=== PATIENT | female | born 1995 | race Two or more races ===

== ENCOUNTER → 2024-01-21 12:18 | Emergency (ER) | payer SELFPAY | END | disposition left against medical advice (07) | LOC: EMS 12:18 | DX: Z53.21 Procedure and treatment not carried out due to patient leaving prior to being seen by health care provider (principal) ==

== ENCOUNTER 2024-01-21 12:36 | Emergency (ER) | payer MEDICAID ==
[~2024-01-21] VITALS: Ht 154.9 cm; Wt 103.2 kg
[2024-01-21 14:55] VITALS: BP 110/71; PULSE 72; RESP 15
== END 2024-01-21 14:58 | disposition home or self-care (01) ==
LOC: EMS 12:36
DX: S00.83XA Contusion of other part of head, initial encounter (principal); Y04.0XXA Assault by unarmed brawl or fight, initial encounter; Y93.89 Activity, other specified; Y92.89 Other specified places as the place of occurrence of the external cause; Y99.8 Other external cause status
CPT/HCPCS: 99283